=== PATIENT | male | born 1990 | race Hispanic/Latino ===

== ENCOUNTER 2018-08-12 13:09 | Emergency (ER) | payer SELFPAY | END 2018-08-12 14:54 | disposition home or self-care (01) | LOC: EDH 13:09 | DX: H61.22 Impacted cerumen, left ear (principal); F41.9 Anxiety disorder, unspecified; Z98.890 Other specified postprocedural states | CPT/HCPCS: 69209; 99282 ==

== ENCOUNTER 2018-11-04 18:08 | Emergency (ER) | payer SELFPAY | END 2018-11-04 18:54 | disposition home or self-care (01) | LOC: EDH 18:08 | DX: N47.1 Phimosis (principal); F41.9 Anxiety disorder, unspecified; Z90.49 Acquired absence of other specified parts of digestive tract; Z72.0 Tobacco use | CPT/HCPCS: 99281 ==

== ENCOUNTER 2020-05-18 17:23 | Emergency (ER) | payer OTHER | END 2020-05-18 17:47 | disposition home or self-care (01) | LOC: EDH 17:23 | DX: Z87.442 Personal history of urinary calculi (principal); F41.9 Anxiety disorder, unspecified; E11.9 Type 2 diabetes mellitus without complications; Z90.49 Acquired absence of other specified parts of digestive tract; Z72.0 Tobacco use | CPT/HCPCS: 99281 ==

== ENCOUNTER 2020-11-05 13:36 | Emergency (ER) | payer SELFPAY ==
[2020-11-05] MEDS ORDERED: KETOROLAC TROMETHAMINE 30MG/ML ONE (15:12)
[2020-11-05] MEDS ORDERED: SODIUM CHLORIDE 0.9% 1000ML 1,000 ML IV ONE (15:13)
[2020-11-05 15:17] LABS: APPEARANCE,URINE Turbid (CLEAR); BILIRUBIN,URINE Moderate (NEGATIVE); COLOR,URINE Orange (YELLOW); GLUCOSE, URINE (UA) Negative (NEGATIVE); KETONES,URINE Trace mg/dL (NEGATIVE); LEUKOCYTE ESTERASE ,URINE Small (NEGATIVE); NITRATE,URINE Negative (NEGATIVE); OCCULT BLOOD,URINE Large (NEGATIVE); PROTEIN,URINE 300 mg/dL (NEGATIVE)
[2020-11-05 15:17] LABS: BASOPHILS % (AUTO) 0.6 % (0.0-5.0); EOSINOPHILS % (AUTO) 5.3 % (0.0-8.0); HEMATOCRIT 40.3 % (42-54); LYMPHOCYTES % (AUTO) 34.9 % (21.0-51.0); MEAN CORPUSCULAR HGB CONC 34.5 g/dL (32.0-36.0); MEAN CORPUSCULAR VOLUME 92.6 fL (79-99); MONOCYTES % (AUTO) 7.4 % (3.0-13.0); NEUTROPHILS % (AUTO) 51.5 % (40.0-77.0); PLATELET COUNT (AUTO) 338 K/uL (130-400); RED BLOOD CELL COUNT(AUTO) 4.35 MIL/uL (4.50-6.20); RED CELL DISTRIBUTION WIDTH 13.2 % (11.0-15.5); WHITE BLOOD COUNT (AUTO) 10.9 K/uL (4.8-10.8)
[2020-11-05 15:25] LABS: AMPHET/METH SCREEN,URINE NEGATIVE (NEGATIVE); BARBITURATE SCREEN, URINE NEGATIVE (NEGATIVE); BENZODIAZEPINES SCREEN,URINE NEGATIVE (NEGATIVE); CANNABINOID SCREEN,URINE NEGATIVE (NEGATIVE); COCAINE SCREEN,URINE NEGATIVE (NEGATIVE); OPIATE SCREEN,URINE NEGATIVE (NEGATIVE); PHENCYCLIDINE SCREEN,URINE NEGATIVE (NEGATIVE)
[2020-11-05 15:28] LABS: CREATININE 0.9 mg/dL (0.5-1.5); POTASSIUM 3.7 mmol/L (3.5-5.1)
[2020-11-05 15:32] LABS: ALBUMIN 4.4 g/dL (3.5-5.0); BILIRUBIN,TOTAL 0.4 mg/dL (0.2-1.0); TOTAL PROTEIN, SERUM 8.3 g/dL (6.0-8.3)
[2020-11-05 15:34] LABS: BACTERIA,URINE Moderate /HPF (None Seen); MUCUS,URINE Few LPF (None Seen); RBC,URINE 51-100 /HPF (0-1); SQUAMOUS EPITHELIAL CELL,UR Few /HPF (0-2)
== END 2020-11-05 18:23 | disposition home or self-care (01) ==
LOC: EDH 13:36
DX: N20.1 Calculus of ureter (principal); F41.9 Anxiety disorder, unspecified; E11.9 Type 2 diabetes mellitus without complications; Z72.0 Tobacco use
CPT/HCPCS: 36415; 74176; 80053; 80305; 81001; 83690; 85025; 87088; 96361; 96374; 99284; J1885; J7030

== ENCOUNTER 2020-11-14 20:47 | Emergency (ER) | payer OTHER ==
[~2020-11-14] VITALS: Ht 154.9 cm; Wt 113.4 kg
[~2020-11-14 20:47] MED LIST: 0.9%NACL 1000ML 1,000 ML IV ONE
[2020-11-14 21:09] LABS: BASOPHILS % (AUTO) 0.8 % (0.0-5.0); EOSINOPHILS % (AUTO) 7.2 % (0.0-8.0); HEMATOCRIT 42.1 % (42-54); LYMPHOCYTES % (AUTO) 37.9 % (21.0-51.0); MEAN CORPUSCULAR HEMOGLOBIN 32.1 pg (27.0-33.0); MEAN CORPUSCULAR HGB CONC 34.2 g/dL (32.0-36.0); MEAN CORPUSCULAR VOLUME 93.8 fL (79-99); MONOCYTES % (AUTO) 8.1 % (3.0-13.0); NEUTROPHILS % (AUTO) 45.7 % (40.0-77.0); PLATELET COUNT (AUTO) 341 K/uL (130-400); RED BLOOD CELL COUNT(AUTO) 4.49 MIL/uL (4.50-6.20); RED CELL DISTRIBUTION WIDTH 13.3 % (11.0-15.5); WHITE BLOOD COUNT (AUTO) 10.2 K/uL (4.8-10.8)
[2020-11-14 21:13] LABS: APPEARANCE,URINE TURBID (CLEAR); BILIRUBIN,URINE MODERATE (NEGATIVE); GLUCOSE, URINE (UA) 100 mg/dL (NEGATIVE); KETONES,URINE 5 mg/dL (NEGATIVE); LEUKOCYTE ESTERASE ,URINE TRACE (NEGATIVE); NITRATE,URINE POSITIVE (NEGATIVE); OCCULT BLOOD,URINE LARGE (NEGATIVE); PH,URINE 6.5 (5.0-8.0); PROTEIN,URINE >=300 mg/dL (NEGATIVE)
[2020-11-14 21:15] LABS: COLOR,URINE BROWN (YELLOW)
[2020-11-14 21:17] LABS: BACTERIA,URINE Few /HPF (None Seen); RBC,URINE Full Field /HPF (0-1); SQUAMOUS EPITHELIAL CELL,UR None Seen /HPF (0-2)
[2020-11-14 21:26] LABS: CREATININE 0.9 mg/dL (0.5-1.5); POTASSIUM 3.8 mmol/L (3.5-5.1)
[2020-11-14 21:31] LABS: ALBUMIN 4.5 g/dL (3.5-5.0); BILIRUBIN,TOTAL 0.3 mg/dL (0.2-1.0); TOTAL PROTEIN, SERUM 8.4 g/dL (6.0-8.3)
[2020-11-14] MEDS ORDERED: PANTOPRAZOLE 40 MG/VIAL IVP ONE (22:00)
[2020-11-14] MEDS ORDERED: FAMOTIDINE 20MG VIAL IV ONE (22:00)
[2020-11-14] MEDS ORDERED: 0.9%NACL 1000ML 1,000 ML IV ONE ×3 (22:00→22:52)
[2020-11-14] MEDS ORDERED: ONDANSETRON 4MG INJ IVP ONE (22:00)
[2020-11-14] MEDS ORDERED: KETOROLAC 30MG VIAL (30MG/ML) IM ONE (23:30)
[2020-11-15] MEDS ORDERED: CEFTRIAXONE 1G VIAL IVP SCH (00:15)
[2020-11-15] MEDS ORDERED: TAMSULOSIN HCL 0.4 MG CAP.ER.24H PO SCH (00:15)
[2020-11-15] MEDS ORDERED: DiphenhydrAMINE HCL 50 MG/ML VIAL IV ONE (00:15)
[2020-11-15] MEDS ORDERED: ONDA4TAB10 PO (00:57)
[2020-11-15] MEDS ORDERED: TAMS-1 PO (00:57)
[2020-11-15] MEDS ORDERED: METO-296 PO (00:57)
[2020-11-15] MEDS ORDERED: MELO7.5T12 PO (00:57)
[2020-11-15] MEDS ORDERED: DICY20TA2 PO (00:57)
== END 2020-11-15 01:21 | disposition home or self-care (01) ==
LOC: EDH 20:47
DX: N20.0 Calculus of kidney (principal); E86.0 Dehydration; E11.9 Type 2 diabetes mellitus without complications; I10 Essential (primary) hypertension; G40.909 Epilepsy, unspecified, not intractable, without status epilepticus; Z79.899 Other long term (current) drug therapy; Z79.1 Long term (current) use of non-steroidal anti-inflammatories (NSAID); Z98.890 Other specified postprocedural states
CPT/HCPCS: 36415; 74176; 80053; 81001; 83690; 85025; 87088; 96361 ×2; 96372; 96374; 96375 ×2; 99284; C9113; J0696; J1200; J1885; J2405; J3490; J7030 ×2

== ENCOUNTER 2020-12-28 14:54 | Emergency (ER) | payer SELFPAY ==
[~2020-12-28] VITALS: Ht 154.9 cm; Wt 112.0 kg
[~2020-12-28 14:54] MED LIST changes: -0.9%NACL 1000ML 1,000 ML IV ONE; +DICY20TA2 PO; +MELO7.5T12 PO; +METO-296 PO; +ONDA4TAB10 PO; +TAMS-1 PO
[2020-12-28 15:12] VITALS: BP 112/63
[2020-12-28 16:08] LABS: BASOPHILS % (AUTO) 0.4 % (0.0-5.0); EOSINOPHILS % (AUTO) 11.1 % (0.0-8.0); HEMATOCRIT 39.5 % (42-54); LYMPHOCYTES % (AUTO) 13.1 % (21.0-51.0); MEAN CORPUSCULAR HEMOGLOBIN 31.4 pg (27.0-33.0); MEAN CORPUSCULAR HGB CONC 35.2 g/dL (32.0-36.0); MEAN CORPUSCULAR VOLUME 89.4 fL (79-99); MONOCYTES % (AUTO) 7.8 % (3.0-13.0); NEUTROPHILS % (AUTO) 67.4 % (40.0-77.0); PLATELET COUNT (AUTO) 295 K/uL (130-400); RED BLOOD CELL COUNT(AUTO) 4.42 MIL/uL (4.50-6.20); RED CELL DISTRIBUTION WIDTH 12.2 % (11.0-15.5); WHITE BLOOD COUNT (AUTO) 12.3 K/uL (4.8-10.8)
[2020-12-28 16:13] LABS: CREATININE 0.8 mg/dL (0.5-1.5); POTASSIUM 3.7 mmol/L (3.5-5.1)
[2020-12-28 16:17] LABS: ALBUMIN 4.2 g/dL (3.5-5.0); BILIRUBIN,TOTAL 0.5 mg/dL (0.2-1.0); TOTAL PROTEIN, SERUM 8.2 g/dL (6.0-8.3)
[2020-12-28 16:46] LABS: APPEARANCE,URINE Clear (CLEAR); BILIRUBIN,URINE Negative (NEGATIVE); COLOR,URINE Yellow (YELLOW); GLUCOSE, URINE (UA) Negative (NEGATIVE); KETONES,URINE Trace mg/dL (NEGATIVE); LEUKOCYTE ESTERASE ,URINE Small (NEGATIVE); NITRATE,URINE Negative (NEGATIVE); OCCULT BLOOD,URINE Large (NEGATIVE); PROTEIN,URINE POS 2+ mg/dL (NEGATIVE); UROBILINOGEN,URINE 0.2 mg/dL (0.2-1.0)
[2020-12-28 16:56] LABS: BACTERIA,URINE Few /HPF (None Seen); MUCUS,URINE Few LPF (None Seen)
[2020-12-28] MEDS ORDERED: ACETAMINOPHEN 325 MG TAB PO ONE (18:00)
[2020-12-28] MEDS ORDERED: 0.9%NACL 1000ML 1,000 ML IV ONE (18:00)
[2020-12-28] MEDS ORDERED: ONDANSETRON 4MG INJ IVP ONE (18:00)
[2020-12-28] MEDS ORDERED: KETOROLAC 30MG VIAL (30MG/ML) IV ONE (18:00)
[2020-12-28] MEDS ORDERED: ZOSYN 3.375GM +NS 50ML IV ONE (19:30)
[2020-12-28 19:42] VITALS: BP 118/70
== END 2020-12-28 20:41 | disposition left against medical advice (07) ==
LOC: EDH 14:54
DX: N12 Tubulo-interstitial nephritis, not specified as acute or chronic (principal); N20.0 Calculus of kidney; R11.2 Nausea with vomiting, unspecified; I10 Essential (primary) hypertension; E11.9 Type 2 diabetes mellitus without complications; E78.00 Pure hypercholesterolemia, unspecified; F32.9 Major depressive disorder, single episode, unspecified; F41.9 Anxiety disorder, unspecified; G40.909 Epilepsy, unspecified, not intractable, without status epilepticus; Z87.442 Personal history of urinary calculi; Z90.49 Acquired absence of other specified parts of digestive tract; Z98.890 Other specified postprocedural states; Z79.899 Other long term (current) drug therapy
CPT/HCPCS: 36415; 74176; 80053; 81001; 85025; 96361; 96374; 96375; 99284; J1885; J2405; J7030